=== PATIENT | female | born 1995 | race Caucasian/White ===

== ENCOUNTER → 2020-12-18 | Outpatient (CLI) | payer BC ==
--- NOTE | 2020-12-18 18:41 | Diagnostic Imaging Report ---
INDICATION: Anatomy scan. Supervision of normal . TECHNIQUE: Multiple real-time grayscale images were obtained over the gravid uterus. COMPARISON: None CLINICAL DATES: Gestational age 19 weeks, 2 days, with an BEAN of 05/12/2021 Number: Single live intrauterine Presentation: Cephalic Placenta: Anterior and not low lying Amniotic Fluid: ZARINA is visually within normal limits. No measurements were provided for the total ZARINA or largest vertical pocket. Heart Rate: 152 bpm Cerebellum: visualized Lateral ventricles: visualized Cavum septum pellucidum: visualized Nasal Bone: visualized Face: visualized Stomach: visualized Kidneys: Not well visualized Bladder: visualized Three vessel cord: visualized Cord insertion: visualized 4 chamber heart: visualized outflow tracts: visualized Spine, upper: visualized Spine, lower: Not well visualized Upper extremities: visualized Lower extremities: visualized Hands: Visualized, however not all fingers are well seen. Feet: Visualized, however not all toes are well seen. The cervix is closed and measures 3.5 cm in length. The bilateral adnexa have an unremarkable appearance. Biometrical measurements are as follows: Biparietal 4.76 cm, age 20 weeks 3 days. Head circumference 17.93 cm, age 20 weeks 3 days. Abdominal circumference 14.61 cm, age 20 weeks 0 days. Femur length 3.14 cm, age 19 weeks 6 days. Sonographic estimate age: 20 weeks 2 days. Sonographic estimated date of delivery: 05/12/2021. Estimated Weight: 320 gm (+/- 47 gm). LMP percentile: 81%. IMPRESSION: 1. Single live intrauterine at approximately 20 weeks, 2 days, with an BEAN of 05/05/2021. These are within range clinical dates. 2. The kidneys and lower spine are not well visualized due to position. The remainder of the anatomy is seen and has a normal appearance. Recommend follow-up as indicated. Dictated by: Dictated on workstation # [id number]
== END ==
LOC: RAD 15:00
PROVIDERS: ATTEND Nurse Practitioner Women's Health
DX: Z34.02 Encounter for supervision of normal first pregnancy, second trimester (principal); Z3A.20 20 weeks gestation of pregnancy
CPT/HCPCS: 76805

== ENCOUNTER 2021-05-01 16:48 | Inpatient (IN) | payer BC ==
[~2021-05-01] VITALS: Ht 172 cm; Wt 105.5 kg
[2021-05-01] VITALS (14 sets, daily range): BP systolic 133–169; BP diastolic 79–95
[2021-05-01 17:28] LABS: BASOPHILS # (AUTO) 0.1 10^3/uL (0.0-0.1); BASOPHILS % (AUTO) 1 % (0-10); EOSINOPHILS # (AUTO) 0.3 10^3/uL (0.0-0.3); EOSINOPHILS % (AUTO) 3 % (0-10); HEMATOCRIT 31 % (35-52); HEMOGLOBIN 9.2 g/dL (11.5-16.0); LYMPHOCYTES # (AUTO) 2.4 10^3/uL (1.0-4.0); LYMPHOCYTES % (AUTO) 21 % (12-44); MEAN CORPUSCULAR HEMOGLOBIN 23 pg (25-34); MEAN CORPUSCULAR HGB CONC 30 g/dL (32-36); MEAN CORPUSCULAR VOLUME 77 fL (80-99); MEAN PLATELET VOLUME 10.2 fL (9.0-12.2); MONOCYTES # (AUTO) 0.6 10^3/uL (0.0-1.0); MONOCYTES % (AUTO) 5 % (0-12); NEUTROPHILS % (AUTO) 69 % (42-75); PLATELET COUNT 433 10^3/uL (130-400); WHITE BLOOD COUNT 11.5 10^3/uL (4.3-11.0)
[2021-05-01 17:41] LABS: URINE CREATININE FOR RATIO 18 MG/DL (30-125)
[2021-05-01 17:42] LABS: URINE PROTEIN FOR RATIO ONLY < 6 MG/DL (6-12)
[2021-05-01 17:50] LABS: ALBUMIN 3.5 GM/DL (3.2-4.5)
[2021-05-01 17:51] LABS: POTASSIUM 3.6 MMOL/L (3.6-5.0)
[2021-05-01 17:52] LABS: CALCIUM 9.2 MG/DL (8.5-10.1)
[2021-05-01 17:53] LABS: TOTAL PROTEIN 6.6 GM/DL (6.4-8.2)
[2021-05-01 17:55] LABS: BILIRUBIN,TOTAL 0.4 MG/DL (0.1-1.0)
[2021-05-01 17:57] LABS: CREATININE SERUM 0.73 MG/DL (0.60-1.30)
[2021-05-01 18:00] LABS: URIC ACID 5.1 MG/DL (2.6-7.2)
[2021-05-01] MEDS ORDERED: MINERAL OIL 30 ML OIL TOP PRN (19:30)
--- NOTE | 2021-05-01 19:31 | History & Physical-OB ---
MALCOLM THOMPSON 05/01/21 1932: OB - Chief Complaint & HPI Date/Time Date of Admission: Date of Admission: Date seen by a Provider: May 01, 2021 Time Seen by a Provider: 19:30 Chief Complaint/History OB-Reason for Admission/Chief: Induction of Labor Hx : 1 Hx Para: 0 Expected Date of Delivery: May 12, 2021 Gestational Age in Weeks: 38 Gestational Age in Days: 3 Indication for induction: medical complication ( induced hypertension) History of Labs A pos Antibody neg Rubella not immune VDRL NR HBsAg NR HIV NR G/C not detected GBS neg Allergies and Home Medications Allergies Coded Allergies: amoxicillin (Verified Allergy, Unknown, 05/01/21) Patient Home Medication List Home Medication List Reviewed: Yes OB - History Hx of Present Care: Yes Ultrasounds: Normal mid trimester US Obstetrical Complications: Gestational Hypertension Medical Complications: None Information Induced Hypertension: Yes Maternal Gestational Diabetes: No Hemorrhage: No Obstetrical History Hx : 1 Hx Para: 0 Hx # Term Pregnancies: 0 Hx # Pregnancies: 0 Number of Living Children: 0 Patient Past Medical History Seasonal allergies Social History/Family History Alcohol Use: Denies Use Recreational Drug Use: No 2nd Hand Smoke Exposure: No Immunizations Influenza Vaccine Up-to-Date: No; Not Current Tetanus Booster (TDap): Less than 5yrs (03/21/2021) Rubella: not immune RPR/VDRL: Negative GBS Status: Negative HBsAG: Negative OB - Admission Exam Physical Exam Vitals: Vital Signs 05/01/21 05/01/21 17:23 19:00 Temp 36.2 Pulse 103 Resp 18 B/P (MAP) 169/92 (117) Pulse Ox 100 O2 Delivery Room Air Heart: Rhythm Normal Lungs: Clear Abdomen: Gravid Extremities: Edema (trace edema of bilateral lower extremities ) Cervical Dilatation: 1cm Membranes: Intact Heart Rate: 140's Accelerations: Accelerations Present Decelerations: No Decelerations Short Term Variability: Present Group Home Variability: Average (6-25) Contractions on Admission: None Isaac Scoring Tool (Modified) Dilation (cm): 1-2cm (1) Effacement (%): 0-30% (0) Cervix Consistency: Firm (0) Subtract 1 point for: Nulliparity (-1) Labs Laboratory Tests Test 05/01/21 16:50 05/01/21 17:20 Range/Units Urine Protein < 6 L 6-12 MG/DL Urine Creatinine 18 L 30-125 MG/DL Urine Protein/Creatinine Ratio White Blood Count 11.5 H 4.3-11.0 10^3/uL Red Blood Count 3.99 3.80-5.11 10^6/uL Hemoglobin 9.2 L 11.5-16.0 g/dL Hematocrit 31 L 35-52 % Mean Corpuscular Volume 77 L 80-99 fL Mean Corpuscular Hemoglobin 23 L 25-34 pg Mean Corpuscular Hemoglobin Concent 30 L 32-36 g/dL Red Cell Distribution Width 16.4 H 10.0-14.5 % Platelet Count 433 H 130-400 10^3/uL Mean Platelet Volume 10.2 9.0-12.2 fL Immature Granulocyte % (Auto) 1 % Neutrophils (%) (Auto) 69 42-75 % Lymphocytes (%) (Auto) 21 12-44 % Monocytes (%) (Auto) 5 0-12 % Eosinophils (%) (Auto) 3 0-10 % Basophils (%) (Auto) 1 0-10 % Neutrophils # (Auto) 8.0 H 1.8-7.8 10^3/uL Lymphocytes # (Auto) 2.4 1.0-4.0 10^3/uL Monocytes # (Auto) 0.6 0.0-1.0 10^3/uL Eosinophils # (Auto) 0.3 0.0-0.3 10^3/uL Basophils # (Auto) 0.1 0.0-0.1 10^3/uL Immature Granulocyte # (Auto) 0.2 H 0.0-0.1 10^3/uL Sodium Level 139 135-145 MMOL/L Potassium Level 3.6 3.6-5.0 MMOL/L Chloride Level 107 98-107 MMOL/L Carbon Dioxide Level 20 L 21-32 MMOL/L Anion Gap 12 5-14 MMOL/L Blood Urea Nitrogen 6 L 7-18 MG/DL Creatinine 0.73 0.60-1.30 MG/DL Estimat Glomerular Filtration Rate 116 BUN/Creatinine Ratio 8 Glucose Level 114 H 70-105 MG/DL Uric Acid 5.1 2.6-7.2 MG/DL Calcium Level 9.2 8.5-10.1 MG/DL Corrected Calcium 9.6 8.5-10.1 MG/DL Total Bilirubin 0.4 0.1-1.0 MG/DL Aspartate Amino Transf (AST/SGOT) 17 5-34 U/L Alanine Aminotransferase (ALT/SGPT) 26 0-55 U/L Alkaline Phosphatase 164 H 40-136 U/L Total Protein 6.6 6.4-8.2 GM/DL Albumin 3.5 3.2-4.5 GM/DL OB - Assessment/Plan/Diagnosis Assessment Assessment: induction of labor Admission Dx 25 yo at 38 weeks 3 days IOL for induced hypertension GBS neg Admission Status: Inpatient Order (span 2 midnights) Reason for Inpatient Admission: IOL for induced hypertension Plan Plan: Induction Induction Method: per Misoprostol Protocol FLORENCIO HUERTAS DO 05/02/21 0808: Allergies and Home Medications Allergies Coded Allergies: amoxicillin (Verified Allergy, Unknown, 05/01/21) OB - Assessment/Plan/Diagnosis Assessment Admission Dx @ 38 weeks GHTN GBS neg Admission Status: Inpatient Order (span 2 midnights) Reason for Inpatient Admission: 38 week IOL Plan Other Plan Verification and Attestation of Medical Student E/M Service A medical student performed and documented this service in my presence. I reviewed and verified all information documented by the medical student and made modifications to such information, when appropriate. I personally performed the physical exam and medical decision making. Florencio Huertas, May 02, 2021,08:09 MALCOLM THOMPSON May 01, 2021 19:31 FLORENCIO HUERTAS DO May 02, 2021 08:08
[2021-05-01] MEDS ORDERED: D5 LR IV SOLUTION 1,000 ML IV ONE (19:48)
[2021-05-01] MEDS ORDERED: NS IV 1000 ML 1,000 ML ONE (19:48)
[2021-05-01] MEDS ORDERED: NS IV 1000 ML 1,000 ML IV SCH (20:00)
[2021-05-01] MEDS ORDERED: CATHETER FLUSH 10 ML SYR IV SCH (22:00)
[2021-05-01] MEDS: D5 LR IV SOLUTION 1,000 ML IV SCH (23:45)
[2021-05-02] VITALS (63 sets, daily range): BP systolic 122–170; BP diastolic 60–101
[2021-05-02] MEDS: D5 LR IV SOLUTION 1,000 ML IV SCH ×2 (03:22→10:56)
[2021-05-02] MEDS ORDERED: fentaNYL 2 mcg/ml BUPIVA 0.125 100 ML ONE (09:47)
[2021-05-02] MEDS ORDERED: BUPIVACAINE 0.25% 30 ML (SENSORCAINE) VIAL ONE (10:41)
[2021-05-02] MEDS ORDERED: fentaNYL INJ 100 MCG/2 ML AMP ONE ×2 (10:41→17:46)
[2021-05-02] MEDS ORDERED: ONDANSETRON 4 MG/2 ML (SDV) Z0FRAN IV PRN (11:15)
[2021-05-02] MEDS ORDERED: fentaNYL 2 mcg/ml BUPIVA 0.125 100 ML IV SCH (11:15)
[2021-05-02] MEDS ORDERED: NALOXONE 0.4 MG/ML 1 ML (NARCAN) VIAL IV PRN ×2 (11:15→17:30)
[2021-05-02] MEDS ORDERED: LACTATED RINGERS 1,000 ML IV ONE (11:15)
[2021-05-02] MEDS ORDERED: diphenhydrAMINE 50 MG/ML INJ (BENADRYL) IV PRN (11:15)
[2021-05-02] MEDS ORDERED: CATHETER FLUSH 10 ML SYR IV PRN ×2 (11:15→17:30)
[2021-05-02] MEDS ORDERED: OXYTOCIN PRE-MIX DRIP 500 ML IV ONE (12:22)
[2021-05-02] MEDS ORDERED: OXYTOCIN PRE-MIX DRIP 500 ML IV SCH ×2 (12:30→17:30)
[2021-05-02] MEDS ORDERED: MINERAL OIL CONCENTRATE 99.9% 15 ML UDC TOP PRN (13:45)
[2021-05-02] MEDS ORDERED: LIDOCAINE/EPI 2% 1:200,00 (XYLOCAINE) 10 ML VIAL ONE (14:53)
[2021-05-02] MEDS ORDERED: FAMOTIDINE 20MG/2ML IV (PEPCID) ONE (17:25)
[2021-05-02] MEDS ORDERED: CITRIC ACID/SOB CIT (BICITRA) 30 ML UDC ONE (17:25)
[2021-05-02] MEDS ORDERED: METOCLOPRAMIDE INJ 10 MG/2 ML (REGLAN) ONE (17:25)
[2021-05-02] MEDS ORDERED: ONDANSETRON 4 MG/2 ML (SDV) Z0FRAN IVP PRN (17:30)
[2021-05-02] MEDS ORDERED: FAMOTIDINE 20MG/2ML IV (PEPCID) IV ONE (17:30)
[2021-05-02] MEDS ORDERED: METOCLOPRAMIDE INJ 10 MG/2 ML (REGLAN) IV ONE (17:30)
[2021-05-02] MEDS ORDERED: TETANUS,DIPTH,PERTUSS P/F (BOOSTRIX) 0.5 ML VIAL IM SCH (17:30)
[2021-05-02] MEDS ORDERED: CITRIC ACID/SOB CIT (BICITRA) 30 ML UDC PO ONE (17:30)
[2021-05-02] MEDS ORDERED: MEASLES,MUMPS,RUBELLA 1 EA INJ SC SCH (17:30)
[2021-05-02] MEDS ORDERED: LACTATED RINGERS 1,000 ML IV PRN ×2 (17:30)
--- NOTE | 2021-05-02 17:31 | Progress Note ---
Standard Progress Note Progress Notes/Assess & Plan Date Seen by a Provider: May 02, 2021 Time Seen by a Provider: 17:25 Progress/Assessment & Plan Patient admitted for IOL due to GHTN of 170s/100 in the office. PIH labs were WNL. Misoprostol used overnight, followed by AROM and Pitocin this am. She received an epidural shortly after and progressed to complete and 0 station where she was encouraged to push. She pushed for 2 hours changing positions and modalities without any progression in skull, large caput developed. Due to CPD, and heart rate decelerations we decided to proceed with delivery. Risk reviewed, vs infant ongoing risk and we decided to proceed, awaiting OR crew and staff to arrive. FLORENCIO HUERTAS DO May 02, 2021 17:31
--- NOTE | 2021-05-02 17:32 | Discharge Inst-Women's Service ---
Discharge Inst-Women's Serv Depart Medication/Instructions New, Converted or Re-Newed RX: Transmitted to Pharmacy Final Diagnosis POD 2 PLTCS Problems Reviewed?: Yes Consults/Follow Up Additional Follow Up: Yes Orders/Referrals Dr. Ghanshyam suh n7-10 days and in 6 weeks Activity Activity: Activity as Tolerated Driving Instructions: No Driving for 1 Week NO SMOKING: NO SMOKING Nothing Inside Vagina: No Douching, No Strawn, No Tampons Diet Discharge Diet: No Restrictions Symptoms to Report to : Bleeding Excessive, Pain Increased, Fever Over 101 Degrees F, Vaginal Bleeding Increase, Questions/Concerns For Any Problems or Questions: Contact Your Physician Skin/Wound Care Infection Signs and Symptoms: Increased Redness, Foul Odor of Wound, Increased Drainage, Skin Itchy or Has a Rash, Increased Swelling, Temperature Above 101 F Operative Area Clean and Dry: Keep Incision Clean/Dry Stitches/Raad/Dermabond: Dermabond, Care of Stitches Bathing Instructions: FLORENCIO Garrett DO May 02, 2021 17:32
[2021-05-02] MEDS ORDERED: IBUP-844 PO (17:35)
[2021-05-02] MEDS ORDERED: ACHD5005 PO (17:35)
[2021-05-02] MEDS ORDERED: FERR-74 PO (17:35)
[2021-05-02] MEDS ORDERED: DOCU100C37 PO (17:35)
[2021-05-02] MEDS ORDERED: TERBUTALINE INJ 1 MG/ML (BRETHINE) AMP ONE (17:39)
[2021-05-02] MEDS ORDERED: ceFAZolin 2 GM IV Premixed 50 ML IV ONE (17:45)
[2021-05-02] MEDS ORDERED: TERBUTALINE INJ 1 MG/ML (BRETHINE) AMP SC ONE (17:45)
[2021-05-02] MEDS ORDERED: BUPIVACAINE 0.5% 30 ML (SENSORCAINE) VIAL ONE (17:59)
[2021-05-02] MEDS ORDERED: LIDOCAINE PF 2% 5 ML (XYLOCAINE) VIAL ONE (17:59)
[2021-05-02] MEDS ORDERED: ONDANSETRON 4 MG/2 ML (SDV) Z0FRAN ONE (18:00)
[2021-05-02] MEDS ORDERED: OXYTOCIN PRE-MIX DRIP 1,000 ML IV ONE (18:00)
[2021-05-02] MEDS ORDERED: KETAMINE 50 MG/5 ML SYRINGE ONE (18:19)
[2021-05-02] MEDS ORDERED: MIDAZOLAM 2 MG/2 ML (VERSED) VIAL ONE (18:21)
[2021-05-02] MEDS ORDERED: proPOfol 200 MG/20 ML (DIPRIVAN) VIAL IV ONE (18:38)
[2021-05-02] MEDS ORDERED: fentaNYL INJ 100 MCG/2 ML AMP IVP ONE (19:00)
[2021-05-02] MEDS: KETOROLAC 30 MG/ML VIAL IV SCH (19:08)
[2021-05-02] MEDS: HYDROcodone/APAP 5 MG/325 MG (LORTAB) TAB PO PRN (21:13)
[2021-05-02] MEDS ORDERED: CATHETER FLUSH 10 ML SYR IV SCH (22:00)
--- NOTE | 2021-05-02 22:40 | OPERATIVE REPORT ---
DATE OF SERVICE: PREOPERATIVE DIAGNOSES: 1. A 25-year-old at 38 weeks and 4 days gestation. 2. Cephalopelvic disproportion. 3. heart rate decelerations. 4. Gestational hypertension. POSTOPERATIVE DIAGNOSES: 1. A 25-year-old at 38 weeks and 4 days gestation. 2. Cephalopelvic disproportion. 3. heart rate decelerations. 4. Gestational hypertension. 5. Nuchal cord x2. PROCEDURE: Primary low transverse section. SURGEON: Martin Huertas DO ANESTHESIA: Epidural, which was bolused. ESTIMATED BLOOD LOSS: 800 mL. URINE OUTPUT: 100 mL clear at the end of the procedure. FLUIDS: 1200 mL of lactated Ringer's solution. FINDINGS: A live female infant weighing 7 pounds 7 ounces, Apgars of 8 and 9. Grossly normal appearing uterus, bilateral fallopian tubes and ovaries. SPECIMEN SENT: Uterus. INDICATIONS FOR PROCEDURE: This 25-year-old female patient was admitted for induction of labor due to gestational hypertension. She was seen in the office and had blood pressures as high as 170s over 100s. Once arrival on the unit, the blood pressure had corrected back down to 140s to 150s/80s to 90s throughout her labor course. She was given misoprostol last night for cervical ripening, started on Pitocin this morning after AROM was performed. She progressed with an epidural for analgesia to complete and 0 station, at which point she was encouraged to push. She pushed in lateral recumbent position, Mc's position and in hands and knees all with no progression of the station. There was a large caput developing and they are also started to be recurrent heart rate variable decelerations. Due to concerns with diminishing status as well as no progression in station, I discussed with the patient proceeding with primary . Risks of procedure were discussed with the patient in detail and after all her questions were answered, consent was obtained, the patient was taken to the operating room. OPERATIVE REPORT IN DETAIL: Once in the operating room, epidural analgesia was bolused and found to be adequate, she was placed in supine position with leftward tilt, prepped and draped in normal sterile fashion. Timeout was performed and anesthesia was tested. I then make a Pfannenstiel skin incision with a knife and carried down to underlying fascia using Bovie cautery. The fascial incision extended laterally using Bovie cautery. Superior aspect of the fascial incision was then grasped with Hadley clamps, tented up and dissected off the underlying rectus muscles. The inferior aspect of the fascial incision was then grasped with Hadley clamps, tented up and dissected off the underlying rectus muscles. Rectus muscles were dissected down the midline, which exposed the peritoneum, which I entered bluntly and extended using blunt traction. Elie ring retractor was placed within the peritoneal incision, which offers excellent lateral sidewall retraction. I identified the lower uterine segment, which was found to be thinned out. I make a low transverse incision to the vesicouterine peritoneum and bluntly dissected off the lower uterine segment, creating a bladder flap. I then proceeded with my myotomy until membranes were visualized, at which point I extended the uterine incision laterally and superiorly using bandage scissors. Amniotomy was performed in the process of doing this. The infant was found in vertex presentation, right occiput transverse. With gentle fundal pressure, the infant's head was elevated up the incision where the nares and oropharynx were bulb suctioned and nuchal cord was reduced x2. Anterior and posterior shoulders were delivered. The was then brought out the operative field with cord doubly clamped and cut and was handed off to nurses in attendance. Cord blood was collected, 3-vessel cord with intact placenta was delivered spontaneously thereafter. IV Pitocin was initiated to facilitate uterine contraction. Uterine fundus became firmer with bimanual massage. Uterus was exteriorized and cleared of all endometrial clots and debris. I then proceeded with closing the uterine incision using 0 Vicryl suture in running locked fashion. Second layer of imbricating 0 Monocryl was placed. Excellent hemostasis was noted after doing this. I then placed the uterus back in the pelvis and copiously irrigated the pelvis using normal saline. Once again, no active bleeding noted from any of my dissection planes. I placed Interceed antiadhesive over my low transverse incision. I removed the Elie ring retractor and then proceeded with closing the peritoneum using 3-0 Vicryl suture in a running fashion. The fascia was reapproximated using 0 Vicryl suture in running fashion. The subcutaneous tissue was reapproximated using 3-0 plain interrupted subcutaneous stitch and the skin reapproximated using 4-0 Monocryl running subcuticular. Dermabond was applied to incision and sterile dressing with adhesive white tape. The patient tolerated the procedure well and was taken to recovery area in stable condition. Lap and sponge counts were correct at the end of procedure. Instrument counts correct as well. Two grams of Ancef given preoperatively for infection prophylaxis. Job ID: [id number] DocumentID: [id number] Dictated Date: 05/02/2021 21:25:35 Retail Experience Specialist Date: 05/02/2021 22:38:59 Dictated By: MARTIN HUERTAS DO
[2021-05-03 00:27] VITALS: BP 129/68
[2021-05-03] MEDS: DOCUSATE SODIUM 100 MG (COLACE) CAP PO SCH ×3 (00:27→20:44)
[2021-05-03] MEDS: KETOROLAC 30 MG/ML VIAL IV SCH ×2 (00:27→06:50)
[2021-05-03] MEDS: HYDROcodone/APAP 5 MG/325 MG (LORTAB) TAB PO PRN ×4 (03:34→23:27)
[2021-05-03 04:39] VITALS: BP 139/65
[2021-05-03 07:45] VITALS: BP 142/76
[2021-05-03 08:05] LABS: BASOPHILS # (AUTO) 0.1 10^3/uL (0.0-0.1); BASOPHILS % (AUTO) 0 % (0-10); EOSINOPHILS # (AUTO) 0.2 10^3/uL (0.0-0.3); EOSINOPHILS % (AUTO) 1 % (0-10); HEMATOCRIT 23 % (35-52); HEMOGLOBIN 7.1 g/dL (11.5-16.0); LYMPHOCYTES # (AUTO) 3.1 10^3/uL (1.0-4.0); LYMPHOCYTES % (AUTO) 19 % (12-44); MEAN CORPUSCULAR HEMOGLOBIN 24 pg (25-34); MEAN CORPUSCULAR HGB CONC 31 g/dL (32-36); MEAN CORPUSCULAR VOLUME 77 fL (80-99); MEAN PLATELET VOLUME 9.8 fL (9.0-12.2); MONOCYTES # (AUTO) 0.9 10^3/uL (0.0-1.0); MONOCYTES % (AUTO) 6 % (0-12); NEUTROPHILS # (AUTO) 12.2 10^3/uL (1.8-7.8); NEUTROPHILS % (AUTO) 74 % (42-75); PLATELET COUNT 316 10^3/uL (130-400); WHITE BLOOD COUNT 16.6 10^3/uL (4.3-11.0)
--- NOTE | 2021-05-03 08:50 | Anesthesia-Regional Post-Op ---
Regional Patient Condition Mental Status: Alert, Oriented x3 Circulation: Same as Pre-Op Headache: Absent Sensation: Full Recovery Motor Block: Absent Post Op Complications Complications None Follow Up Care/Instructions Patient Instructions None needed. Anesthesia/Patient Condition Patient is doing well, no complaints, stable vital signs, no apparent adverse anesthesia problems. No complications reported per nursing. GABRIELLA NAGY CRNA May 03, 2021 08:50
[2021-05-03] MEDS ORDERED: IBUPROFEN 600 MG (MOTRIN) TAB PO ONE (14:55)
[2021-05-03] MEDS: IBUPROFEN 600 MG (MOTRIN) TAB PO SCH ×2 (14:56→20:44)
[2021-05-03 16:15] VITALS: BP 131/74
[2021-05-03] MEDS ORDERED: SIMETHICONE 80 MG (MYLICON) CHEW PO PRN (20:45)
[2021-05-03 20:46] VITALS: BP 129/73
[2021-05-04] MEDS: IBUPROFEN 600 MG (MOTRIN) TAB PO SCH ×2 (03:00→08:39)
[2021-05-04 03:20] VITALS: BP 139/85
[2021-05-04 08:38] VITALS: BP 133/80
[2021-05-04] MEDS: DOCUSATE SODIUM 100 MG (COLACE) CAP PO SCH (08:39)
--- NOTE | 2021-05-04 09:36 | Postpartum Progress Note ---
Note Note Day # 2 Subjective: Patient is without complaints. Ambulating, voiding. Tolerating a regular diet without nausea or vomiting. Normal lochia. Pain is well controlled with oral pain medications. Objective: Physical Exam: General - Alert and oriented, no apparent distress Abdomen - Soft, appropriately tender to palpation, non-distended, fundus firm at umbilicus; incision c/d/i Extremities - no edema, negative Alke's bilaterally Assessment: Post- day # 2, status post PLTCS. Recovering well, hemodynamically stable Acute blood loss anemia Plan: Routine care. Encourage breast feeding. Encourage ambulation. Ferrous sulfate supplementation. Plan for discharge today Vitals - Labs Vital Signs - I&O Vital Signs Date Time Temp Pulse Resp B/P (MAP) Pulse Ox O2 Delivery O2 Flow Rate FiO2 05/04/21 08:38 36.6 85 18 133/80 (97) 98 Room Air 05/04/21 03:20 36.6 73 18 139/85 (103) Room Air 05/03/21 20:46 36.4 97 18 129/73 (91) 98 Room Air 05/03/21 16:15 36.7 95 18 131/74 (93) 98 Room Air I & O 05/04/21 07:00 Intake Total 2000 ml Output Total 1150 ml Balance 850 ml NATIVIDAD NATION APRN May 04, 2021 09:36
[2021-05-04] MEDS: HYDROcodone/APAP 5 MG/325 MG (LORTAB) TAB PO PRN (10:19)
[2021-05-04] MEDS ORDERED: ONDANSETRON 4 MG (ZOFRAN) ORAL DISSOLVE TAB PO STA (13:58)
[2021-05-04] MEDS ORDERED: ONDANSETRON 4 MG (ZOFRAN) ORAL DISSOLVE TAB ONE (14:01)
== END 2021-05-04 14:15 | disposition home or self-care (01) | DRG 787 ==
LOC: WSo 16:48 → LDRP 16:48 → WSo 18:32 → LDRP 05-02 19:30
PROVIDERS: ADMIT Obstetrics & Gynecology; ATTEND Obstetrics & Gynecology
PROC: 10D00Z1 Extraction of Products of Conception, Low, Open Approach (ICD-10-PCS; principal; 2021-05-02 18:05)
DX: O13.4 Gestational [pregnancy-induced] hypertension without significant proteinuria, complicating childbirth (principal); D62 Acute posthemorrhagic anemia; Z3A.38 38 weeks gestation of pregnancy; Z37.0 Single live birth; O90.81 Anemia of the puerperium; O76 Abnormality in fetal heart rate and rhythm complicating labor and delivery; O33.9 Maternal care for disproportion, unspecified
CPT/HCPCS: 36415; 80053; 82570; 84156; 84550; 85025; 86850; 86900; 86901; 94664